=== PATIENT | male | born 1965 | race Caucasian/White ===

== ENCOUNTER 2024-06-08 08:21 | Emergency (ER) | payer SELFPAY ==
[~2024-06-08] VITALS: Ht 185.4 cm; Wt 81.6 kg
[~2024-06-08 08:21] MED LIST: CELEXA10 MG PO; CLONAZEPAM1 MG PO; LORCET 10-6501 EACH PO; NEURONTIN300 MG PO; RANITIDINE HCL75 MG PO; SOMA350 MG PO; ULTRAM50 MG PO; VALSARTAN/HCTZ
[2024-06-08 08:25] VITALS: TEMP 97.6
[2024-06-08 08:53] LABS: BASOPHILS # (AUTO) 0.1 (0.0-0.1); BASOPHILS % 0.6 % (0.0-1.0); EOSINOPHILS # (AUTO) 0.5 (0.0-0.4); EOSINOPHILS % 3.6 % (0.0-6.0); HEMATOCRIT 41.3 % (38.2-49.6); HEMOGLOBIN 13.1 g/dL (14.0-18.0); LYMPHOCYTES # (AUTO) 2.7 (1.0-3.2); LYMPHOCYTES % 21.8 % (18.0-39.1); MEAN CORPUSCULAR HEMOGLOBIN 30.5 pg (28-32); MEAN CORPUSCULAR HGB CONC 31.7 g/dL (31-35); MEAN CORPUSCULAR VOLUME 96.3 fL (81-99); MONOCYTES # (AUTO) 0.9 (0.2-0.8); MONOCYTES % 6.9 % (4.4-11.3); NEUTROPHILS # (AUTO) 8.3 (2.1-6.9); NEUTROPHILS % 66.2 % (38.7-80.0); PLATELET COUNT 512 x10e3/uL (140-360); RED BLOOD COUNT 4.29 x10e6/uL (4.3-5.7); RED CELL DISTRIBUTION WIDTH 12.5 % (11.7-14.4); WHITE BLOOD COUNT 12.54 x10e3/uL (4.8-10.8)
[2024-06-08 09:21] LABS: ALBUMIN 3.9 g/dL (3.5-5.0); ALBUMIN/GLOBULIN RATIO 1.2 (0.8-2.0); BILIRUBIN,TOTAL 0.5 mg/dL (0.2-1.2); CALCIUM 9.3 mg/dL (8.4-10.2); CREATININE, SERUM 1.11 mg/dL (0.72-1.25); TOTAL PROTEIN 7.2 g/dL (6.5-8.1)
[2024-06-08 10:48] VITALS: PULSE 78; RESP 14; O2SAT 99
== END 2024-06-08 11:08 | disposition home or self-care (01) ==
LOC: ER 08:30
DX: R42 Dizziness and giddiness (principal); K76.9 Liver disease, unspecified; M54.9 Dorsalgia, unspecified; G89.29 Other chronic pain
CPT/HCPCS: 36415; 70450; 71045; 80053; 84484; 85025; 93005; 99284

== ENCOUNTER 2025-02-18 09:57 | Emergency (ER) | payer SELFPAY ==
[~2025-02-18] VITALS: Ht 185.4 cm; Wt 81.6 kg
[2025-02-18 10:06] VITALS: PULSE 101; RESP 18; TEMP 98.7; O2SAT 99
[2025-02-18] MEDS: TETANUS/DIPHTHERIA TOX ADULT 0.5 ML SYR IM ONE (10:23)
[2025-02-18] MEDS ORDERED: BACTRIM DS TAB1 EACH PO (12:13)
[2025-02-18] MEDS ORDERED: KEFLEX125 MG/5 M PO (12:13)
[2025-02-18] MEDS: IBUPROFEN 600 MG TAB PO STA (12:51)
== END 2025-02-18 13:33 | disposition home or self-care (01) ==
LOC: ER 10:15
DX: M79.671 Pain in right foot (principal); S90.511A Abrasion, right ankle, initial encounter; V03.10XA Pedestrian on foot injured in collision with car, pick-up truck or van in traffic accident, initial encounter; Y92.488 Other paved roadways as the place of occurrence of the external cause; I10 Essential (primary) hypertension; K76.9 Liver disease, unspecified; M54.9 Dorsalgia, unspecified; G89.29 Other chronic pain
CPT/HCPCS: 90471; 90714; 99284

== ENCOUNTER 2025-03-14 00:26 | Emergency (ER) | payer MEDICARE ==
[~2025-03-14] VITALS: Ht 185.4 cm; Wt 81.6 kg
[~2025-03-14 00:26] MED LIST changes: +BACTRIM DS TAB1 EACH PO; +KEFLEX125 MG/5 M PO
[2025-03-14 00:47] VITALS: PULSE 85; RESP 16; TEMP 98.4; O2SAT 100
== END 2025-03-14 01:01 | disposition home or self-care (01) ==
LOC: ER 00:55
DX: S91.301D Unspecified open wound, right foot, subsequent encounter (principal); V09.9XXD Pedestrian injured in unspecified transport accident, subsequent encounter; Y99.0 Civilian activity done for income or pay; I10 Essential (primary) hypertension; K76.9 Liver disease, unspecified; M54.9 Dorsalgia, unspecified; G89.29 Other chronic pain
CPT/HCPCS: 99283